=== PATIENT | female | born 1985 | race Asian ===

== ENCOUNTER 2017-02-01 09:15 | Inpatient (IN) | payer SELFPAY ==
[~2017-02-01] VITALS: Ht 162 cm; Wt 65.3 kg
[2017-02-01] MEDS ORDERED: LR 1,000 ML IV ONE (09:49)
[2017-02-01] MEDS ORDERED: CEFAZOLIN 2 GM IVPB PREMIX 50 ML IV ONE (10:00)
[2017-02-01] MEDS ORDERED: CITRIC ACID/SODIUM CITRATE 30 ML UDC PO ONE (10:00)
[2017-02-01 10:28] LABS: BASOPHILS % (AUTO) 0.4 % (0.0-2.0); EOSINOPHILS # (AUTO) 0.1 K/uL (0.0-0.4); EOSINOPHILS % (AUTO) 0.7 % (0.0-4.0); HEMATOCRIT 35.4 % (36-48); HEMOGLOBIN 11.9 g/dL (12.0-16.0); LYMPHOCYTES # (AUTO) 1.1 K/uL (1.0-5.5); LYMPHOCYTES % (AUTO) 12.4 % (20.5-51.5); MEAN CORPUSCULAR HEMOGLOBIN 30 pg (27-31); MEAN CORPUSCULAR HGB CONC 34 % (32-36); MEAN CORPUSCULAR VOLUME 91 fL (79.0-98.0); MONOCYTES # (AUTO) 0.6 K/uL (0.0-1.0); NEUTROPHILS # (AUTO) 6.9 K/uL (1.8-7.7); NEUTROPHILS % (AUTO) 79.5 % (40.0-70.0); PLATELET COUNT (AUTO) 194 K/uL (130-430); RED CELL DISTRIBUTION WIDTH 13.4 % (9.0-15.0); WHITE BLOOD COUNT (AUTO) 8.7 K/uL (4.8-10.8)
[2017-02-01] MEDS ORDERED: BUPIVACAINE /PF 0.75% 10 ML VIAL INJ ONE (14:01)
[2017-02-01] MEDS ORDERED: OXYTOCIN 10 UNIT/ML VIAL IV ONE (14:01)
[2017-02-01] MEDS ORDERED: LR 1,000 ML IV.SOLN IV ONE (14:01)
[2017-02-01] MEDS ORDERED: MORPHINE SULFATE 10MG/10ML PF AMP EP ONE (14:01)
[2017-02-01] MEDS ORDERED: NS IRRIG SOLN 1000 ML IR ONE (14:01)
[2017-02-01] MEDS ORDERED: LANOLIN 7 GM OINT. TP PRN (14:15)
[2017-02-01] MEDS ORDERED: OXYCODONE/ACETAMINOPHEN 5-325 TABLET PO PRN ×2 (14:15)
[2017-02-01] MEDS ORDERED: HYDROcodone/ACETAMIN 5-325 MG TAB (NORCO/ VICODIN) PO PRN (14:15)
[2017-02-01] MEDS ORDERED: OXYTOCIN/NORMAL SALINE 1,000 ML IV ONE (14:15)
[2017-02-01] MEDS ORDERED: MEASLES,MUMPS&RUBELLA VACC/PF 12500 UNIT/0.5 ML VIAL SUBQ PRN (14:15)
[2017-02-01] MEDS ORDERED: SIMETHICONE 80 MG TAB.CHEW PO PRN (14:15)
[2017-02-01] MEDS ORDERED: ANUSOL 1 EA SUPP.RECT (PREPARATION H) RC PRN (14:15)
[2017-02-01] MEDS ORDERED: LR 1,000 ML IV SCH (14:22)
[2017-02-01] MEDS ORDERED: ePHEDrine sulfate 50 MG/ML VIAL IVP PRN (14:30)
[2017-02-01] MEDS ORDERED: MORPHINE SULFATE 10MG/10ML PF AMP SP SCH (14:30)
[2017-02-01] MEDS ORDERED: ONDANSETRON HCL 4 MG/2 ML VIAL IVP PRN ×2 (14:30)
[2017-02-01] MEDS ORDERED: HYDROmorphone 2 MG/ML VIAL IVP PRN ×2 (14:30)
[2017-02-01] MEDS ORDERED: HYDROmorphone 1 MG INJ. 1 MG/ML AMPUL IVP PRN ×2 (14:30)
[2017-02-01] MEDS ORDERED: DIPHENHYDRAMINE INJ 50 MG/ML VIAL IVP PRN (14:30)
[2017-02-01] MEDS ORDERED: MEPERIDINE HCL/PF 25 MG/ML DISP.SYRIN IVP PRN ×2 (14:30)
[2017-02-01] MEDS ORDERED: NALBUPHINE HCL 10 MG/ML AMP IVP PRN (14:30)
[2017-02-01] MEDS ORDERED: NALOXONE HCL 0.4 MG/ML AMP (NARCAN) IVP PRN (14:30)
[2017-02-01 15:20] VITALS: BP_SYST 116
[2017-02-01] MEDS: CEFAZOLIN 1 GM IVPB PREMIX 50 ML IV SCH (20:30)
[2017-02-01] MEDS ORDERED: TEMAZEPAM 15 MG CAPSULE PO PRN (21:00)
[2017-02-02] MEDS: CEFAZOLIN 1 GM IVPB PREMIX 50 ML IV SCH ×2 (02:15→08:15)
[2017-02-02] MEDS: IBUPROFEN 600 MG TABLET PO SCH ×3 (05:34→18:14)
[2017-02-02] MEDS: DOCUSATE SODIUM 100 MG CAPSULE PO PRN ×2 (05:34→11:38)
[2017-02-02 07:03] LABS: BASOPHILS % (AUTO) 0.2 % (0.0-2.0); EOSINOPHILS % (AUTO) 0.3 % (0.0-4.0); HEMATOCRIT 28.8 % (36-48); HEMOGLOBIN 9.6 g/dL (12.0-16.0); LYMPHOCYTES # (AUTO) 0.9 K/uL (1.0-5.5); LYMPHOCYTES % (AUTO) 7.8 % (20.5-51.5); MEAN CORPUSCULAR HEMOGLOBIN 30 pg (27-31); MEAN CORPUSCULAR HGB CONC 33 % (32-36); MEAN CORPUSCULAR VOLUME 91 fL (79.0-98.0); MONOCYTES # (AUTO) 0.9 K/uL (0.0-1.0); MONOCYTES % (AUTO) 7.3 % (1.7-9.3); NEUTROPHILS # (AUTO) 10.1 K/uL (1.8-7.7); NEUTROPHILS % (AUTO) 84.4 % (40.0-70.0); PLATELET COUNT (AUTO) 160 K/uL (130-430); RED BLOOD CELL COUNT(AUTO) 3.17 MIL/uL (4.2-6.2); RED CELL DISTRIBUTION WIDTH 13.7 % (9.0-15.0); WHITE BLOOD COUNT (AUTO) 11.9 K/uL (4.8-10.8)
[2017-02-03] MEDS: IBUPROFEN 600 MG TABLET PO SCH ×3 (00:10→12:14)
== END 2017-02-03 16:30 | disposition home or self-care (01) | DRG 766 ==
LOC: SPU 09:15
PROVIDERS: ADMIT Obstetrics & Gynecology; ATTEND Obstetrics & Gynecology
PROC: 10D00Z1 Extraction of Products of Conception, Low, Open Approach (ICD-10-PCS; principal; 2017-02-01 14:30)
DX: O33.9 Maternal care for disproportion, unspecified (principal); O77.0 Labor and delivery complicated by meconium in amniotic fluid; Z37.0 Single live birth; Z3A.41 41 weeks gestation of pregnancy
CPT/HCPCS: 36415; 85025; 86886; 86900; 86901; 94760; J0690; J2274; J2590; J3490; J7120